=== PATIENT | female | born 1950 | race Caucasian/White ===

== ENCOUNTER 2021-05-19 15:15 | Inpatient (IN) ==
[2021-05-19] MEDS ORDERED: *HR* Metoprolol 5 MG/5 ML VIAL IVP ONE (18:51)
[2021-05-19 21:10] LABS: Mean Corpuscular HGB Conc 30.8 g/dL (31.6-35.5); Mean Corpuscular Hemoglobin 27.7 pg (28.0-33.3)
[2021-05-19 21:12] LABS: Immature Platelets 7.3 % (1.1-6.1); Mean Platelet Volume 11.5 fL (9.4-12.4); Red Blood Count 2.89 M/mcL (3.82-4.97); White Blood Count 12.5 K/mcL (4.3-11.1)
[2021-05-19] MEDS ORDERED: Naloxone 0.4 MG/ML INJ IVP PRN (21:14)
[2021-05-19] MEDS ORDERED: Ondansetron 4 MG/2 ML VIAL IVP PRN (21:14)
[2021-05-19 21:19] LABS: INR 2.4; Prothrombin Time 26.8 Seconds (9.4-12.1)
[2021-05-19 21:21] LABS: Activated Partial Thrombo Time 36.3 Seconds (26.0-36.0)
[2021-05-19 21:21] LABS: Amorphous Sediment,Urine Few per hpf (None-Few); Bacteria,Urine Few per hpf (None-Few); Bilirubin,Urine Small (Negative); Blood,Urine Trace (Negative); Clarity,Urine Turbid (Clear); Color,Urine Dark-Yellow (Yellow); Glucose,Urine (UA) Normal (Normal); Hyaline Casts,Urine Many per lpf (None Seen); Ketones,Urine Negative (Negative); Leukocyte Esterase,Urine Negative (Negative); Mucus,Urine Few per lpf (None-Few); Nitrite,Urine Negative (Negative); PH,Urine 5.5 pH Units (5.0-8.0); Protein,Urine 30 mg/dL (Neg-Trace); Specific Gravity,Urine 1.016 (1.010-1.025); Squamous Epithelial Cell,Urine Moderate per hpf (None-Few); Urobilinogen,Urine Normal (Normal)
[2021-05-19 21:29] LABS: Troponin I 0.07 ng/mL (< 0.04)
[2021-05-19 21:38] LABS: Thyroid Stimulating Hormone 3.503 mcIU/mL (0.340-5.600)
[2021-05-19 21:39] LABS: Alanine Aminotransferase 14 Units/L (7-52); Albumin 1.8 g/dL (3.5-5.7); Albumin/Globulin Ratio 0.5 (1.1-2.2); Alkaline Phosphatase 471 Units/L (34-104); Aspartate Amino Transferase 23 Units/L (13-39); BUN/Creatinine Ratio 39 (6-26); Bilirubin,Direct 1.6 mg/dL (0.0-0.2); Bilirubin,Indirect 1.3 mg/dL (0.0-1.0); Bilirubin,Total 2.9 mg/dL (0.3-1.0); Blood Urea Nitrogen 36 mg/dL (8-23); Carbon Dioxide 23 mEq/L (23-29); Chloride 108 mEq/L (98-107); Ferritin 176 ng/mL (10-120); Globulin 3.4 g/dL (2.4-3.5); Glucose 118 mg/dL (70-105); Iron < 10 mcg/dL (50-170); Magnesium 1.8 mg/dL (1.6-2.6); Osmolality,Calculated 299 (280-300); Potassium 3.1 mEq/L (3.5-5.1); Sodium 140 mEq/L (136-145); Total Protein 5.2 g/dL (6.4-8.9); Transferrin 130 mg/dL (203-362); eGFR For African Americans > 60 (> 60); eGFR For Non-African Americans > 60 (> 60)
[2021-05-19 21:50] LABS: Platelet Count 86 K/mcL (140-400)
[2021-05-19 21:52] LABS: Anisocytosis 3+ (Not Present); Hypochromasia Present (Not Present); Lymphocytes # 0.8 K/mcL (0.6-4.6); Microcytosis Present (Not Present); Monocytes # 0.8 K/mcL (0.0-1.3); Platelet Estimate Decreased (Normal); Toxic Granulation Present (Not Present)
[2021-05-19 21:53] LABS: Poikilocytosis 1+ (Not Present); Target Cells 1+ (Not Present)
[2021-05-19 21:57] LABS: Folate 12.5 ng/mL (3.0-16.0)
[2021-05-19] MEDS ORDERED: Albumin 25% 25gram/100mL 25 GM/100 ML IV.SOLN IVPB ONE ×2 (21:59)
[2021-05-19] MEDS ORDERED: Potassium Chloride 20 MEQ, Lidocaine 1% 2 ML in 0.9 % Sodium Chloride 250 ML IVPB ONE (22:00)
[2021-05-19] MEDS ORDERED: cefTRIAXone 1,000 MG in 0.9 % Sodium Chloride Mini Bag 100 ML IVPB SCH (22:03)
[2021-05-19 22:17] LABS: Estimated Average Glucose 74 mg/dl; Hemoglobin A1C 4.2 %
[2021-05-19] MEDS: cefTRIAXone 1,000 MG in 0.9 % Sodium Chloride Mini Bag 100 ML IVPB SCH (22:27)
[2021-05-19] MEDS ORDERED: Perflutren Lipid Microsphere 1.3 ML in 0.9 % Sodium Chloride 8.7 ML IVP PRN (23:40)
[2021-05-20] MEDS: *HR* Heparin 5,000 UNIT/ML VIAL SQ SCH ×3 (05:20→20:37)
[2021-05-20] MEDS ORDERED: Famotidine 20 MG/2 ML VIAL IVP SCH (06:00)
[2021-05-20] MEDS: cefTRIAXone 1,000 MG in 0.9 % Sodium Chloride Mini Bag 100 ML IVPB SCH ×2 (15:23→20:37)
[2021-05-20] MEDS ORDERED: *HR* HYDROmorphone 2 MG TABLET PO PRN (15:36)
[2021-05-20] MEDS ORDERED: Furosemide 20 MG/2 ML VIAL IVP SCH (15:45)
[2021-05-20 16:56] LABS: Hematocrit 27.1 % (35.3-44.9); Hemoglobin 8.4 g/dL (11.5-15.4)
[2021-05-20] MEDS: Sennosides 8.6 MG TABLET PO SCH (18:13)
[2021-05-21] MEDS: Sennosides 8.6 MG TABLET PO SCH ×2 (03:38→15:41)
[2021-05-21] MEDS: *HR* Heparin 5,000 UNIT/ML VIAL SQ SCH (05:06)
[2021-05-21 06:20] LABS: BUN/Creatinine Ratio 43 (6-26); Blood Urea Nitrogen 43 mg/dL (8-23); Calcium 9.6 mg/dL (8.6-10.3); Carbon Dioxide 28 mEq/L (23-29); Chloride 108 mEq/L (98-107); Glucose 106 mg/dL (70-105); Osmolality,Calculated 311 (280-300); Sodium 145 mEq/L (136-145); eGFR For African Americans > 60 (> 60); eGFR For Non-African Americans 54 (> 60)
[2021-05-21] MEDS: Furosemide 40 MG/4 ML VIAL IVP SCH ×2 (08:56→20:39)
[2021-05-21] MEDS: Cholecalciferol (D-3) 1,000 UNIT (25MCG) TABLET PO SCH (08:56)
[2021-05-21] MEDS: *HR* Amiodarone 200 MG TABLET PO SCH (08:56)
[2021-05-21] MEDS: Primidone 50 MG TABLET PO SCH ×2 (08:56→20:39)
[2021-05-21] MEDS: Apixaban 5 MG TABLET PO SCH ×2 (08:56→20:40)
[2021-05-21] MEDS: Folic Acid 1 MG TABLET PO SCH (08:56)
[2021-05-21] MEDS: Patient Taking Own Medication 1 EACH PO SCH (08:57)
[2021-05-21] MEDS ORDERED: hydroCHLOROthiazide 25 MG TABLET PO SCH (09:00)
[2021-05-21] MEDS ORDERED: Famotidine 20 MG/2 ML VIAL IVP SCH (09:00)
[2021-05-21 10:41] LABS: Hematocrit 30.9 % (35.3-44.9); Hemoglobin 9.3 g/dL (11.5-15.4); Immature Platelets 9.5 % (1.1-6.1); Mean Corpuscular HGB Conc 30.1 g/dL (31.6-35.5); Mean Corpuscular Hemoglobin 27.5 pg (28.0-33.3); Mean Corpuscular Volume 91.4 fL (83.0-100.0); Red Blood Count 3.38 M/mcL (3.82-4.97); Red Cell Distribution Width 28.5 % (11.5-14.5); White Blood Count 10.7 K/mcL (4.3-11.1)
[2021-05-21] MEDS: cefTRIAXone 1,000 MG in 0.9 % Sodium Chloride Mini Bag 100 ML IVPB SCH ×2 (10:42→20:42)
[2021-05-21 10:50] LABS: Platelet Count 86 K/mcL (140-400)
[2021-05-22] MEDS: Sennosides 8.6 MG TABLET PO SCH ×2 (03:36→17:10)
[2021-05-22 07:13] LABS: Red Cell Distribution Width 27.8 % (11.5-14.5)
[2021-05-22 07:16] LABS: BUN/Creatinine Ratio 46 (6-26); Blood Urea Nitrogen 49 mg/dL (8-23); Calcium 9.7 mg/dL (8.6-10.3); Carbon Dioxide 23 mEq/L (23-29); Chloride 113 mEq/L (98-107); Glucose 112 mg/dL (70-105); Hematocrit 29.6 % (35.3-44.9); Hemoglobin 9.5 g/dL (11.5-15.4); Immature Platelets 6.8 % (1.1-6.1); Magnesium 1.8 mg/dL (1.6-2.6); Mean Corpuscular HGB Conc 32.1 g/dL (31.6-35.5); Mean Corpuscular Volume 87.3 fL (83.0-100.0); Mean Platelet Volume 12.1 fL (9.4-12.4); Osmolality,Calculated 314 (280-300); Phosphorous 2.5 mg/dL (2.7-4.5); Potassium 3.7 mEq/L (3.5-5.1); Red Blood Count 3.39 M/mcL (3.82-4.97); Sodium 145 mEq/L (136-145); eGFR For African Americans > 60 (> 60); eGFR For Non-African Americans 51 (> 60)
[2021-05-22 08:36] LABS: Platelet Count 95 K/mcL (140-400)
[2021-05-22 08:39] LABS: Lymphocytes # 0.8 K/mcL (0.6-4.6); Monocytes # 0.6 K/mcL (0.0-1.3); Neutrophils # 12.6 K/mcL (1.6-8.9); Platelet Estimate Slight Decrease (Normal)
[2021-05-22 08:40] LABS: Anisocytosis 2+ (Not Present); Hypochromasia Present (Not Present); Microcytosis Present (Not Present); Poikilocytosis 1+ (Not Present); Target Cells 1+ (Not Present)
[2021-05-22] MEDS: Primidone 50 MG TABLET PO SCH ×2 (10:29→21:16)
[2021-05-22] MEDS: Apixaban 5 MG TABLET PO SCH ×2 (10:30→21:15)
[2021-05-22] MEDS: Azithromycin 250 MG TABLET PO SCH (10:30)
[2021-05-22] MEDS: Folic Acid 1 MG TABLET PO SCH (10:30)
[2021-05-22] MEDS: Cholecalciferol (D-3) 1,000 UNIT (25MCG) TABLET PO SCH (10:31)
[2021-05-22] MEDS: Furosemide 40 MG/4 ML VIAL IVP SCH ×2 (10:31→21:15)
[2021-05-22] MEDS: Patient Taking Own Medication 1 EACH PO SCH (10:31)
[2021-05-22] MEDS: *HR* Amiodarone 200 MG TABLET PO SCH (10:31)
[2021-05-22] MEDS: Cefepime HCl 2,000 MG in Water for inj. (sterile) 20 ML IVP SCH ×3 (10:32→23:45)
[2021-05-23] MEDS: Sennosides 8.6 MG TABLET PO SCH ×2 (03:33→15:44)
[2021-05-23 05:06] LABS: Hematocrit 28.9 % (35.3-44.9); Hemoglobin 8.8 g/dL (11.5-15.4); Immature Platelets 6.5 % (1.1-6.1); Mean Corpuscular HGB Conc 30.4 g/dL (31.6-35.5); Mean Corpuscular Hemoglobin 26.9 pg (28.0-33.3); Mean Corpuscular Volume 88.4 fL (83.0-100.0); Platelet Count 117 K/mcL (140-400); Red Blood Count 3.27 M/mcL (3.82-4.97); Red Cell Distribution Width 27.7 % (11.5-14.5); White Blood Count 17.3 K/mcL (4.3-11.1)
[2021-05-23 05:23] LABS: Calcium 9.9 mg/dL (8.6-10.3); Potassium 3.1 mEq/L (3.5-5.1)
[2021-05-23] MEDS: Patient Taking Own Medication 1 EACH PO SCH (10:15)
[2021-05-23] MEDS: Cefepime HCl 2,000 MG in Water for inj. (sterile) 20 ML IVP SCH ×2 (10:26→15:34)
[2021-05-23] MEDS: Azithromycin 250 MG TABLET PO SCH (10:32)
[2021-05-23] MEDS: Primidone 50 MG TABLET PO SCH ×2 (10:32→21:46)
[2021-05-23] MEDS: Apixaban 5 MG TABLET PO SCH ×2 (10:33→21:46)
[2021-05-23] MEDS: Folic Acid 1 MG TABLET PO SCH (10:33)
[2021-05-23] MEDS: *HR* Amiodarone 200 MG TABLET PO SCH (10:33)
[2021-05-23] MEDS: Cholecalciferol (D-3) 1,000 UNIT (25MCG) TABLET PO SCH (10:34)
[2021-05-23] MEDS ORDERED: Iron Sucrose Complex 400 MG in 0.9 % Sodium Chloride 250 ML IVPB ONE (12:51)
[2021-05-23] MEDS ORDERED: Albumin 25% 25gram/100mL 25 GM/100 ML IV.SOLN IVPB ONE (13:21)
[2021-05-23] MEDS: Nystatin SUSP 5 ML UD.LIQ PO SCH ×2 (15:46→21:46)
[2021-05-23 16:32] LABS: Hematocrit 29.4 % (35.3-44.9); Hemoglobin 8.9 g/dL (11.5-15.4)
[2021-05-23 16:52] LABS: Albumin 2.1 g/dL (3.5-5.7); Albumin/Globulin Ratio 0.6 (1.1-2.2); Globulin 3.6 g/dL (2.4-3.5); Total Protein 5.7 g/dL (6.4-8.9)
[2021-05-23] MEDS ORDERED: Furosemide 40 MG/4 ML VIAL IVP ONE (17:00)
[2021-05-24] MEDS: Cefepime HCl 2,000 MG in Water for inj. (sterile) 20 ML IVP SCH (01:31)
[2021-05-24] MEDS: Sennosides 8.6 MG TABLET PO SCH ×3 (04:06→15:57)
[2021-05-24 05:26] LABS: Basophils % 0.2 %; Immature Granulocytes % 0.9 % (0-4); Lymphocytes % 6.2 %
[2021-05-24 05:28] LABS: Basophils # 0.1 K/mcL (0.0-0.2); Eosinophils # 0.2 K/mcL (0.0-0.6); Hemoglobin 9.3 g/dL (11.5-15.4); Immature Platelets 6.8 % (1.1-6.1); Lymphocytes # 1.4 K/mcL (0.6-4.6); Mean Corpuscular Hemoglobin 26.9 pg (28.0-33.3); Mean Corpuscular Volume 89.6 fL (83.0-100.0); Mean Platelet Volume 11.5 fL (9.4-12.4); Monocytes % 4.5 %; Neutrophils # 19.7 K/mcL (1.6-8.9); Platelet Count 128 K/mcL (140-400); Red Blood Count 3.46 M/mcL (3.82-4.97); Red Cell Distribution Width 27.8 % (11.5-14.5); Segmented Neutrophils % 87.2 %; White Blood Count 22.6 K/mcL (4.3-11.1)
[2021-05-24 05:48] LABS: Albumin 2.2 g/dL (3.5-5.7); Albumin/Globulin Ratio 0.6 (1.1-2.2); Anisocytosis 2+ (Not Present); Globulin 3.6 g/dL (2.4-3.5); Hypochromasia Present (Not Present); Magnesium 1.8 mg/dL (1.6-2.6); Potassium 3.2 mEq/L (3.5-5.1); Target Cells 1+ (Not Present); Total Protein 5.8 g/dL (6.4-8.9)
[2021-05-24 05:49] LABS: Platelet Estimate Slight Decrease (Normal)
[2021-05-24 05:50] LABS: Microcytosis Present (Not Present)
[2021-05-24] MEDS: Cholecalciferol (D-3) 1,000 UNIT (25MCG) TABLET PO SCH (08:51)
[2021-05-24] MEDS: *HR* Amiodarone 200 MG TABLET PO SCH (08:52)
[2021-05-24] MEDS: Folic Acid 1 MG TABLET PO SCH (08:52)
[2021-05-24] MEDS: Apixaban 5 MG TABLET PO SCH ×3 (08:52→21:31)
[2021-05-24] MEDS: Primidone 50 MG TABLET PO SCH ×3 (08:52→21:32)
[2021-05-24] MEDS: Azithromycin 250 MG TABLET PO SCH (08:53)
[2021-05-24] MEDS: Patient Taking Own Medication 1 EACH PO SCH (08:54)
[2021-05-24] MEDS: Nystatin SUSP 5 ML UD.LIQ PO SCH ×6 (08:54→21:31)
[2021-05-24] MEDS ORDERED: Ampicillin 2,000 MG in 0.9 % Sodium Chloride Mini Bag 100 ML IVPB SCH (09:00)
[2021-05-24] MEDS: Vancomycin 1,500 MG/265 ML IV.SOLN IVPB SCH (10:46)
[2021-05-24] MEDS: Piperacillin/Tazobactam 3.375 GM in 0.9 % Sodium Chloride Mini Bag 100 ML IVPB SCH (15:40)
[2021-05-24 16:40] LABS: Prothrombin Time 22.2 Seconds (9.4-12.1)
[2021-05-24] MEDS ORDERED: Furosemide 40 MG/4 ML VIAL IVP ONE (21:00)
[2021-05-24] MEDS ORDERED: *HR* Heparin 5,000 UNIT/ML VIAL IVP PRN ×2 (21:17)
[2021-05-24] MEDS ORDERED: *HR* Heparin 5,000 UNIT/ML VIAL IVP ONE (21:17)
[2021-05-24] MEDS ORDERED: Heparin 25,000UNIT/250ML 1/2NS 25,000 UNIT/250 ML IV.SOLN IVC SCH (21:30)
[2021-05-24] MEDS ORDERED: *HR* HYDROmorphone (PF) 1 MG/ML SYRINGE IVP ONE (22:13)
[2021-05-25] MEDS: Albumin 25% 25gram/100mL 25 GM/100 ML IV.SOLN IVPB SCH ×3 (01:00→16:22)
[2021-05-25 01:20] LABS: Basophils % 0.1 %; Eosinophils # 0.3 K/mcL (0.0-0.6); Eosinophils % 1.2 %; Hematocrit 25.8 % (35.3-44.9); Hemoglobin 7.9 g/dL (11.5-15.4); Immature Platelets 7.5 % (1.1-6.1); Lymphocytes # 1.2 K/mcL (0.6-4.6); Lymphocytes % 5.2 %; Mean Corpuscular HGB Conc 30.6 g/dL (31.6-35.5); Mean Corpuscular Hemoglobin 27.9 pg (28.0-33.3); Mean Corpuscular Volume 91.2 fL (83.0-100.0); Monocytes # 0.9 K/mcL (0.0-1.3); Monocytes % 3.8 %; Neutrophils # 20.3 K/mcL (1.6-8.9); Platelet Count 117 K/mcL (140-400); Red Blood Count 2.83 M/mcL (3.82-4.97); Red Cell Distribution Width 27.9 % (11.5-14.5); Segmented Neutrophils % 88.7 %; White Blood Count 22.9 K/mcL (4.3-11.1)
[2021-05-25 01:30] LABS: INR 2.6; Prothrombin Time 28.4 Seconds (9.4-12.1)
[2021-05-25 01:40] LABS: Albumin 1.9 g/dL (3.5-5.7); Albumin/Globulin Ratio 0.5 (1.1-2.2); Bilirubin,Total 1.6 mg/dL (0.3-1.0); Calcium 9.9 mg/dL (8.6-10.3); Globulin 3.5 g/dL (2.4-3.5); Total Protein 5.4 g/dL (6.4-8.9)
[2021-05-25 01:44] LABS: Anisocytosis 2+ (Not Present); Platelet Estimate Slight Decrease (Normal); Target Cells 1+ (Not Present)
[2021-05-25 01:52] LABS: Activated Partial Thrombo Time > 360.0 Seconds (26.0-36.0)
[2021-05-25] MEDS: Piperacillin/Tazobactam 3.375 GM in 0.9 % Sodium Chloride Mini Bag 100 ML IVPB SCH ×3 (02:07→16:22)
[2021-05-25] MEDS: Sennosides 8.6 MG TABLET PO SCH ×2 (03:38→14:30)
[2021-05-25] MEDS: Primidone 50 MG TABLET PO SCH ×2 (08:40→20:22)
[2021-05-25] MEDS: Folic Acid 1 MG TABLET PO SCH (08:40)
[2021-05-25] MEDS: *HR* Amiodarone 200 MG TABLET PO SCH (08:40)
[2021-05-25] MEDS: Nystatin SUSP 5 ML UD.LIQ PO SCH ×5 (08:40→20:22)
[2021-05-25] MEDS: Cholecalciferol (D-3) 1,000 UNIT (25MCG) TABLET PO SCH (08:40)
[2021-05-25] MEDS: Azithromycin 250 MG TABLET PO SCH (08:40)
[2021-05-25] MEDS: Vancomycin 1,500 MG/265 ML IV.SOLN IVPB SCH (09:44)
[2021-05-25 14:52] LABS: Magnesium 1.9 mg/dL (1.6-2.6); Phosphorous 3.3 mg/dL (2.7-4.5)
[2021-05-25 14:53] LABS: Calcium 10.2 mg/dL (8.6-10.3); Potassium 3.1 mEq/L (3.5-5.1)
[2021-05-25] MEDS: *HR* Enoxaparin 100 MG/ML SYRINGE SQ SCH (16:22)
[2021-05-25] MEDS ORDERED: D5% in 0.45% NACL w KCl 20 MEQ/1,000 ML MLS IVC SCH (17:45)
[2021-05-25] MEDS ORDERED: Ketorolac 15 MG/ML VIAL IVP ONE (20:45)
[2021-05-25] MEDS ORDERED: 0.45 % Sodium Chloride w/KCl 20 MEQ/1,000 ML MLS IVC SCH (23:45)
[2021-05-26] MEDS: Piperacillin/Tazobactam 3.375 GM in 0.9 % Sodium Chloride Mini Bag 100 ML IVPB SCH ×4 (00:26→23:36)
[2021-05-26] MEDS: Albumin 25% 25gram/100mL 25 GM/100 ML IV.SOLN IVPB SCH ×4 (00:27→23:36)
[2021-05-26 05:28] LABS: Basophils % 0.1 %; Eosinophils # 0.2 K/mcL (0.0-0.6); Eosinophils % 0.8 %; Hematocrit 29.8 % (35.3-44.9); Hemoglobin 8.8 g/dL (11.5-15.4); Immature Platelets 9.8 % (1.1-6.1); Lymphocytes % 3.9 %; Mean Corpuscular HGB Conc 29.5 g/dL (31.6-35.5); Mean Corpuscular Hemoglobin 27.2 pg (28.0-33.3); Mean Platelet Volume 11.7 fL (9.4-12.4); Monocytes # 0.8 K/mcL (0.0-1.3); Neutrophils # 23.6 K/mcL (1.6-8.9); Platelet Count 149 K/mcL (140-400); Red Blood Count 3.24 M/mcL (3.82-4.97); Red Cell Distribution Width 27.5 % (11.5-14.5); Segmented Neutrophils % 91.2 %; White Blood Count 25.9 K/mcL (4.3-11.1)
[2021-05-26 05:50] LABS: Albumin 2.6 g/dL (3.5-5.7); Albumin/Globulin Ratio 0.7 (1.1-2.2); Anisocytosis 2+ (Not Present); Bilirubin,Total 1.7 mg/dL (0.3-1.0); Calcium 10.7 mg/dL (8.6-10.3); Globulin 3.6 g/dL (2.4-3.5); Hypochromasia Present (Not Present); Microcytosis Present (Not Present); Potassium 3.1 mEq/L (3.5-5.1); Target Cells 1+ (Not Present); Total Protein 6.2 g/dL (6.4-8.9)
[2021-05-26 05:51] LABS: Platelet Estimate Normal (Normal)
[2021-05-26] MEDS: Sennosides 8.6 MG TABLET PO SCH ×2 (05:58→17:26)
[2021-05-26] MEDS: *HR* Enoxaparin 100 MG/ML SYRINGE SQ SCH ×2 (06:02→18:35)
[2021-05-26] MEDS ORDERED: Furosemide 20 MG/2 ML VIAL IVP SCH (09:00)
[2021-05-26] MEDS ORDERED: Potassium Chloride 40 MEQ, Lidocaine 1% 2 ML in 0.9 % Sodium Chloride 500 ML IVPB ONE (09:06)
[2021-05-26] MEDS ORDERED: D5% in Water 1,000 ML IVC SCH (09:15)
[2021-05-26] MEDS: *HR* Amiodarone 200 MG TABLET PO SCH (15:09)
[2021-05-26] MEDS: Nystatin SUSP 5 ML UD.LIQ PO SCH ×3 (15:10→17:35)
[2021-05-26] MEDS: Folic Acid 1 MG TABLET PO SCH (15:10)
[2021-05-26] MEDS: Primidone 50 MG TABLET PO SCH (15:10)
[2021-05-26] MEDS: Cholecalciferol (D-3) 1,000 UNIT (25MCG) TABLET PO SCH (15:10)
[2021-05-26] MEDS: *HR* Metoprolol 5 MG/5 ML VIAL IVP SCH ×2 (17:35→23:37)
[2021-05-27 05:05] LABS: Albumin 3.3 g/dL (3.5-5.7); Albumin/Globulin Ratio 1.2 (1.1-2.2); Bilirubin,Total 1.3 mg/dL (0.3-1.0); Calcium 10.9 mg/dL (8.6-10.3); Globulin 2.8 g/dL (2.4-3.5); Potassium 2.8 mEq/L (3.5-5.1); Total Protein 6.1 g/dL (6.4-8.9)
[2021-05-27 05:11] LABS: Hematocrit 24.5 % (35.3-44.9); Hemoglobin 7.1 g/dL (11.5-15.4); Immature Platelets 13.9 % (1.1-6.1); Mean Corpuscular Hemoglobin 27.4 pg (28.0-33.3); Mean Corpuscular Volume 94.6 fL (83.0-100.0); Platelet Count 132 K/mcL (140-400); Red Blood Count 2.59 M/mcL (3.82-4.97); Red Cell Distribution Width 28.1 % (11.5-14.5); White Blood Count 24.4 K/mcL (4.3-11.1)
[2021-05-27] MEDS: Primidone 50 MG TABLET PO SCH ×2 (06:18→08:27)
[2021-05-27] MEDS: Nystatin SUSP 5 ML UD.LIQ PO SCH ×2 (06:18→08:27)
[2021-05-27] MEDS: Sennosides 8.6 MG TABLET PO SCH (06:18)
[2021-05-27] MEDS: *HR* Metoprolol 5 MG/5 ML VIAL IVP SCH (06:19)
[2021-05-27] MEDS: *HR* Enoxaparin 100 MG/ML SYRINGE SQ SCH (06:24)
[2021-05-27] MEDS: Vancomycin 1,500 MG/265 ML IV.SOLN IVPB SCH (07:21)
[2021-05-27] MEDS: Azithromycin 250 MG TABLET PO SCH (07:21)
[2021-05-27] MEDS: Albumin 25% 25gram/100mL 25 GM/100 ML IV.SOLN IVPB SCH (08:12)
[2021-05-27] MEDS: *HR* Amiodarone 200 MG TABLET PO SCH (08:27)
[2021-05-27] MEDS: Folic Acid 1 MG TABLET PO SCH (08:27)
[2021-05-27] MEDS: Cholecalciferol (D-3) 1,000 UNIT (25MCG) TABLET PO SCH (08:28)
[2021-05-27] MEDS: Piperacillin/Tazobactam 3.375 GM in 0.9 % Sodium Chloride Mini Bag 100 ML IVPB SCH (10:10)
[2021-05-27] MEDS ORDERED: Acetaminophen 650 MG RECTAL SUPP RC PRN (11:29)
[2021-05-27] MEDS ORDERED: Atropine 1% Opth Drops 100 DROP/5 ML BOTTLE SL PRN (11:29)
[2021-05-27] MEDS ORDERED: Haloperidol Lactate 5 MG/ML VIAL IVP PRN (11:32)
[2021-05-27] MEDS: Morphine Sulfate 2 MG/ML SYRINGE IVP PRN (13:34)
[2021-05-27] MEDS: *HR* LORazepam 2 MG/ML VIAL IVP PRN ×2 (15:19→23:52)
[2021-05-28] MEDS: Morphine Sulfate 2 MG/ML SYRINGE IVP PRN ×2 (02:07→04:32)
[2021-05-28 07:03] VITALS: BP 121/73; PULSE 122; TEMP 98.3; O2SAT 91
[2021-05-28] MEDS: *HR* LORazepam 2 MG/ML VIAL IVP PRN (08:02)
== END 2021-05-28 11:33 | disposition hospice, inpatient (51) | DRG 871 ==
LOC: 3BNU → SUATTDRO 17:45 → 2ANU 05-27 14:50
PROVIDERS: ADMIT Family Medicine; ATTEND Registered Nurse

== ENCOUNTER 2021-05-28 09:57 | Inpatient (IN) ==
[2021-05-28] MEDS ORDERED: Atropine 1% Opth Drops 100 DROP/5 ML BOTTLE SL PRN (10:01)
[2021-05-28] MEDS ORDERED: Acetaminophen 650 MG RECTAL SUPP RC PRN (10:01)
[2021-05-28] MEDS ORDERED: Haloperidol Lactate 5 MG/ML VIAL IVP PRN (10:04)
[2021-05-28] MEDS ORDERED: Scopolamine Patch 1.5 MG PATCH.TD72 TD SCH (10:15)
[2021-05-28] MEDS: Morphine Sulfate 2 MG/ML SYRINGE IVP PRN ×2 (13:19→21:43)
[2021-05-28] MEDS: *HR* LORazepam 2 MG/ML VIAL IVP PRN (14:52)
[2021-05-28 19:16] VITALS: BP 83/47; PULSE 147; TEMP 99.1; O2SAT 82
[2021-05-29] MEDS: *HR* LORazepam 2 MG/ML VIAL IVP PRN (02:06)
== END 2021-05-29 02:10 | disposition expired | DRG 951 ==
LOC: 2ANU 11:35
PROVIDERS: ADMIT Internal Medicine Hospice and Palliative Medicine; ATTEND Internal Medicine Hospice and Palliative Medicine